=== PATIENT | female | born 1970 | race African-American/Black ===

== ENCOUNTER 2016-12-06 05:15 | Day surgery (SDC) | payer OTHER ==
[2016-12-03 11:25] VITALS: BMI 27.2
[2016-12-06] MEDS ORDERED: LIDOCAINE HCL/PF 2% SDV 5ML VIAL ONE (11:27)
[2016-12-06] MEDS ORDERED: PROPOFOL 20 ML ONE (11:27)
[2016-12-06] MEDS ORDERED: MIDAZOLAM HCL 2 MG/2 ML SINGLE DOSE VIAL ONE (12:38)
[2016-12-06] MEDS ORDERED: DEXAMETHASONE SOD PHOSPHATE 4 MG/1 ML VIAL ONE (12:58)
[2016-12-06] MEDS ORDERED: KETOROLAC TROMETHAMINE 30 MG/1 ML VIAL ONE (12:58)
[2016-12-06 15:04] VITALS: TEMP 98.4
--- NOTE | 2016-12-06 15:08 | HP ---
History & Physical Update - History History: No Change - Physical Physical: No Change - Assessment Assessment: No Change - Plan Plan: No Change
[2016-12-06] MEDS ORDERED: IBUPROFEN 400 MG TABLET (FP) PO PRN (15:21)
[2016-12-06] MEDS ORDERED: ACETAMINOPHEN 325 MG TABLET (FP) PO PRN (15:21)
--- NOTE | 2016-12-06 15:49 | OP ---
Operative Note - Note: Operative Date: 12/06/16 Pre-Operative Diagnosis: Menorrhagia. Submucosal myoma Operation: Hysteroscopic myomectomy. Suction DC Findings: Anterior submucosal myoma Post-Operative Diagnosis: Same as Pre-op Surgeon: Brynn Magallanes Anesthesia: General Estimated Blood Loss (mls): 30 Operative Report Dictated: Yes
[2016-12-06 16:16] VITALS: BP 130/76; PULSE 73
--- NOTE | 2016-12-07 13:24 | PATH ---
Surgical Pathology Report Patient Name: ALEX SAWANT [facility]. Rec. #: [id number] /Age/Gender: 1970 (Age: 45) / F Account: [id number] Location: [facility] SURGICAL Taken: 12/06/2016 Received: 12/06/2016 Reported: 12/07/2016 Physicians: Brynn Magallanes M.D. Specimen(s) Received FIBROIDS, POLYPS Clinical History Menorrhagia Final Diagnosis FIBROIDS AND POLYPS, HYSTEROSCOPIC MYOMECTOMY, SUCTION DILATION AND CURETTAGE: FRAGMENTS OF SECRETORY ENDOMETRIUM WITH FOCAL AREAS SUGGESTIVE OF ENDOMETRIAL POLYP. FRAGMENTS OF BENIGN SMOOTH MUSCLE WITH OVERLYING BENIGN ENDOMETRIUM SUGGESTIVE OF SUBMUCOSAL LEIOMYOMA. Electronically Signed Kameron Sullivan M.D. Gross Description Received in formalin labeled "fibroids and polyp" is a 33 g, 8.3 x 7.0 x 1.0 cm aggregate of castorena-red soft tissue fragments admixed with blood clot. The formalin is filtered and the specimen is entirely submitted in 12 cassettes. /12/06/2016 [facility]12/06/2016
== END 2016-12-06 16:15 | disposition home or self-care (01) ==
LOC: JASU-SURG 05:15
PROVIDERS: ATTEND Obstetrics & Gynecology
PROC: 0UDB8ZX Extraction of Endometrium, Via Natural or Artificial Opening Endoscopic, Diagnostic (ICD-10-PCS; principal; 2016-12-06 11:30)
PROC: 0UB98ZZ Excision of Uterus, Via Natural or Artificial Opening Endoscopic (ICD-10-PCS; 2016-12-06 11:30)
DX: N92.0 Excessive and frequent menstruation with regular cycle (principal); D25.0 Submucous leiomyoma of uterus
CPT/HCPCS: 88305-TC; 94760

== ENCOUNTER 2017-01-17 05:11 | Inpatient (IN) | payer OTHER ==
[2017-01-12 11:02] VITALS: BMI 27.9
[2017-01-17] MEDS ORDERED: ROPIVACAINE HCL 0.5% 30ML VIAL ONE (09:29)
[2017-01-17] MEDS ORDERED: MIDAZOLAM HCL 2 MG/2 ML SINGLE DOSE VIAL ONE ×3 (09:31→12:01)
[2017-01-17] MEDS ORDERED: CEFAZOLIN 2 GM/D5W 50 ML IVPB ONE (10:16)
--- NOTE | 2017-01-17 10:16 | HP ---
History & Physical Update - History History: No Change - Physical Physical: No Change - Assessment Assessment: No Change - Plan Plan: No Change
[2017-01-17] MEDS ORDERED: ceFAZolin SODIUM 1 GM VIAL ONE (10:18)
[2017-01-17] MEDS ORDERED: PROPOFOL 20 ML ONE ×3 (10:18→12:01)
[2017-01-17] MEDS ORDERED: ROCURONIUM BROMIDE 50 MG/5 ML VIAL ONE ×2 (10:20→12:01)
[2017-01-17] MEDS ORDERED: ceFAZolin SODIUM 1 GM VIAL IVPB ONE (10:24)
--- NOTE | 2017-01-17 10:29 | OP ---
Operative Note - Note: Operative Date: 01/17/17 Surgeon: Brynn Magallanes Sample Case Porter: Galina Breen Anesthesia: General Operative Report Dictated: Yes
[2017-01-17] MEDS ORDERED: DEXTROSE 5%-LACTATED RINGERS 1,000 ML IV SCH (10:30)
[2017-01-17] MEDS ORDERED: GLYCOPYRROLATE 0.2 MG/1 ML VIAL ONE (11:04)
[2017-01-17] MEDS ORDERED: NEOSTIGMINE METHYLSULFATE 0.5 MG/ML - 10 ML MDV ONE (11:04)
[2017-01-17] MEDS ORDERED: DEXAMETHASONE SOD PHOSPHATE 4 MG/1 ML VIAL ONE ×2 (11:04→12:41)
[2017-01-17] MEDS ORDERED: HYDROmorphone HCL CARPU-JECT 2 MG/1 ML DISP.SYRIN IVPUSH PRN (12:00)
[2017-01-17] MEDS ORDERED: LACTATED RINGERS SOLUTION 1,000 ML IV SCH (12:00)
[2017-01-17] MEDS ORDERED: ONDANSETRON 4 MG/2 ML VIAL IVPUSH PRN (12:00)
[2017-01-17] MEDS ORDERED: LIDOCAINE HCL/PF 2% SDV 5ML VIAL ONE (12:01)
[2017-01-17] MEDS ORDERED: HYDROmorphone HCL CARPU-JECT 2 MG/1 ML DISP.SYRIN ONE ×2 (12:12→12:13)
[2017-01-17] MEDS ORDERED: HYDROmorphone *PCA* 10MG/50ML DISP.SYRIN PCA ONE (12:13)
[2017-01-17] MEDS ORDERED: ePHEDrine SULFATE 50 MG/1 ML AMPULE ONE (14:51)
[2017-01-17] MEDS: IBUPROFEN 800 MG/8 ML IJ IVPB PRN (16:38)
[2017-01-17] MEDS: CEFAZOLIN (PRE-DOCKED) 50 ML IVPB SCH (17:57)
[2017-01-17] MEDS ORDERED: CEFAZOLIN 1 GM/D5W 50 ML IVPB SCH (18:00)
[2017-01-18] MEDS: CEFAZOLIN (PRE-DOCKED) 50 ML IVPB SCH (01:27)
[2017-01-18] MEDS: IBUPROFEN 800 MG/8 ML IJ IVPB PRN (02:17)
[2017-01-18] MEDS: ENOXAPARIN NA (PORCINE) 40 MG/0.4 ML DISP.SYRIN SQ SCH (09:12)
[2017-01-18] MEDS: oxyCODONE HCL 5 MG TABLET PO PRN ×3 (11:50→21:15)
--- NOTE | 2017-01-18 14:04 | OP ---
DATE OF OPERATION: 01/17/2017 PREOPERATIVE DIAGNOSIS: Leiomyomatous uterus and adenomyosis, as well as pelvic pain, menorrhagia. OPERATION: Total abdominal hysterectomy and bilateral salpingectomy. POSTOPERATIVE DIAGNOSIS: Leiomyomatous uterus and adenomyosis, as well as pelvic pain, menorrhagia. SURGEON: Chon Mccormick MD DESIGN CENTER CONSULTANT: Galina Breen MD ANESTHESIA: General. ANESTHESIOLOGIST: Selena Pierce MD PROCEDURE: Patient was taken to the operating room, placed in supine position, prepped and draped in the usual sterile fashion. Chavez catheter was inserted into the bladder. A time-out was performed in accordance with hospital regulations after patient was prepped and draped in the usual sterile fashion. Scalpel was then used to go through the patients previous scar. Cautery was then used to go through the layers of abdominal wall through to the fascia. Fascia was cut in the midline, and cautery was then used to open the fascia in a smiling fashion. Ainsley was then used to bluntly and sharply dissect the rectus muscle. The fascial muscle was split in the midline. Peritoneal cavity was then entered and carried up and downwards. Uterus was then exteriorized, bowel was packed out of the operative field. Round ligaments were identified, and clamped and cut using LigaSure. Vesicouterine fistula was entered and clamped and cut using LigaSure. Uterine arteries were then skeletonized, and LigaSure was then used to coagulate and cut both uterine arteries bilaterally. Cardinal ligaments were identified after the vesicouterine fistula was then entered, and bladder was bluntly dissected out of the operative field. Cardinal ligament was identified, clamped and cut down to the level of the cervix. Vagina was then entered, and Luna scissors were then used to cut the vagina away from the cervix. Uterus and cervix were then submitted. Bilateral tubes were coagulated and cut using LigaSure. Cuff was then closed using 0 Vicryl suture in a continuous and locking fashion. Hemostasis was achieved. Interceed was placed on the cuff and sewn and tied in. Two pieces of Interceed were placed on the adnexal region. Hemostasis was achieved after irrigation done. Sweep was done, pack count was done, and abdominal packing was removed. Peritoneum was then closed using 0 Vicryl suture in continuous fashion. Vicryl was then used to close the fascia in a continuous fashion. Wound was washed and dressed. Then, 3-0 Vicryl was used to close the skin. Wound was washed and dressed. Patient tolerated the procedure well. Estimated blood loss was 200 mL. CHON MCCORMICK M.D. [id number]
--- NOTE | 2017-01-18 14:45 | PN ---
Progress Note, Physician Chief Complaint: s/p abdominal hysterectomy post op day one History of Present Illness: bilateral TAPS block for post op pain control - Current Medication List Current Medications: Active Medications Enoxaparin Sodium (Lovenox -) 40 mg SQ DAILY BENITO Last Admin: 01/18/17 09:12 Dose: 40 mg Hydromorphone HCl (Dilaudid Injection -) 2 mg IVPUSH [id number] PRN PRN Reason: PAIN Stop: 01/20/17 12:01 Last Admin: 01/17/17 12:12 Dose: 2 mg Dextrose/Lactated Ringer's (D5-Lr -) 1,000 mls @ 125 mls/hr IV ASDIR BENITO Lactated Ringer's (Lactated Ringers Solution) 1,000 mls @ 125 mls/hr IV ASDIR BENITO Last Admin: 01/18/17 00:30 Dose: 125 mls/hr Ibuprofen (Caldolor Injection -) 800 mg IVPB Q8H PRN PRN Reason: FEVER Last Admin: 01/18/17 02:17 Dose: 800 mg Oxycodone HCl (Roxicodone -) 5 mg PO Q4H PRN PRN Reason: PAIN Last Admin: 01/18/17 11:50 Dose: 5 mg - Objective Vital Signs: Vital Signs Temperature 98.2 F 01/18/17 10:00 Pulse Rate 81 01/18/17 10:00 Respiratory Rate 20 01/18/17 10:00 Blood Pressure 125/72 01/18/17 10:00 O2 Sat by Pulse Oximetry (%) 100 01/17/17 22:00 Constitutional: Yes: Well Nourished Cardiovascular: Yes: WNL Respiratory: Yes: WNL Gastrointestinal: Yes: WNL Assessment/Plan Pain controlled, complained of gas pain, no nausea or vomiting, no adverse effects of anesthesia, dept of anesthesia will sign off care at this time
[2017-01-18] MEDS ORDERED: OXYCODONE/APAP 5/325MG COMBO TABLET PO PRN (18:38)
[2017-01-18] MEDS ORDERED: oxyCODONE HCL 5 MG TABLET PO PRN ×2 (18:44→18:47)
[2017-01-18] MEDS ORDERED: ACETAMINOPHEN 325 MG TABLET (FP) PO PRN (18:44)
[2017-01-18] MEDS: SIMETHICONE 80 MG TAB.CHEW (FP) PO PRN (18:56)
[2017-01-18] MEDS: ONDANSETRON 4 MG/2 ML VIAL IVPB PRN (19:01)
[2017-01-18] MEDS: ACETAMINOPHEN 325 MG TABLET (FP) PO PRN (21:14)
--- NOTE | 2017-01-19 06:10 | PN ---
Progress Note (SOAP) - Subjective Chief Complaint: Pt doing well - Current Medications Current Medications: Active Medications Acetaminophen (Tylenol -) 650 mg PO Q4H PRN PRN Reason: PAIN LEVEL 6-10 Stop: 01/21/17 18:46 Last Admin: 01/18/17 21:14 Dose: 650 mg Enoxaparin Sodium (Lovenox -) 40 mg SQ DAILY BENITO Last Admin: 01/18/17 09:12 Dose: 40 mg Hydromorphone HCl (Dilaudid Injection -) 2 mg IVPUSH [id number] PRN PRN Reason: PAIN Stop: 01/20/17 12:01 Last Admin: 01/17/17 12:12 Dose: 2 mg Dextrose/Lactated Ringer's (D5-Lr -) 1,000 mls @ 125 mls/hr IV ASDIR BENITO Lactated Ringer's (Lactated Ringers Solution) 1,000 mls @ 125 mls/hr IV ASDIR BENITO Last Admin: 01/18/17 00:30 Dose: 125 mls/hr Ibuprofen (Caldolor Injection -) 800 mg IVPB Q8H PRN PRN Reason: FEVER Last Admin: 01/18/17 02:17 Dose: 800 mg Ondansetron HCl (Zofran Injection) 4 mg IVPB Q6H PRN PRN Reason: NAUSEA Last Admin: 01/18/17 19:01 Dose: 4 mg Oxycodone HCl (Roxicodone -) 5 mg PO Q4H PRN PRN Reason: PAIN Last Admin: 01/18/17 21:15 Dose: 5 mg Oxycodone HCl (Roxicodone -) 10 mg PO Q4H PRN PRN Reason: PAIN LEVEL 6-10 Simethicone (Mylicon -) 80 mg PO Q4H PRN PRN Reason: GAS Last Admin: 01/18/17 18:56 Dose: 80 mg - Objective Vital Signs: Vital Signs Temperature 98.5 F 01/18/17 22:00 Pulse Rate 78 01/18/17 22:00 Respiratory Rate 20 01/18/17 22:00 Blood Pressure 120/75 01/18/17 22:00 O2 Sat by Pulse Oximetry (%) 100 01/18/17 22:00 Constitutional: Yes: Well Nourished, No Distress Gastrointestinal: Yes: WNL, Normal Bowel Sounds, Soft Musculoskeletal: Yes: WNL Edema: No Wound/Incision: Yes: Clean/Dry, Well Approximated, Steri Strips, Open to air Assessment/Plan POD2 stable nausea resolved passing flatus plan DC home Rto 1 week
[2017-01-19] MEDS: ENOXAPARIN NA (PORCINE) 40 MG/0.4 ML DISP.SYRIN SQ SCH (09:03)
[2017-01-19] MEDS: SIMETHICONE 80 MG TAB.CHEW (FP) PO PRN ×2 (09:03→21:24)
[2017-01-19] MEDS: ACETAMINOPHEN 325 MG TABLET (FP) PO PRN ×2 (09:03→21:27)
[2017-01-19] MEDS: ONDANSETRON 4 MG/2 ML VIAL IVPB PRN (15:19)
[2017-01-19] MEDS ORDERED: BISACODYL 10 MG SUPP.RECT RC ONE (15:26)
[2017-01-19] MEDS ORDERED: IBUPROFEN 600 MG TABLET (FP) PO PRN (15:27)
--- NOTE | 2017-01-19 17:50 | PATH ---
Surgical Pathology Report Patient Name: ALEX SAWANT [facility]. Rec. 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 Specimen(s) Received A: UTERUS AND CERVIX B: RIGHT FALLOPIAN TUBE C: LEFT FALLOPIAN TUBE Clinical History Leiomyoma of uterus Final Diagnosis A. UTERUS AND CERVIX, TOTAL ABDOMINAL HYSTERECTOMY: CERVIX: CHRONIC CERVICITIS, SQUAMOUS METAPLASIA. ENDOMETRIUM: SECRETORY. MYOMETRIUM: FOCAL ADENOMYOSIS, LEIOMYOMATA (LARGEST 3.2 CM). UTERINE SEROSA: WITHOUT SIGNIFICANT PATHOLOGIC CHANGES. B. FALLOPIAN TUBE, RIGHT, SALPINGECTOMY: BENIGN FIMBRIATED PORTION OF FALLOPIAN TUBE WITH FOCAL FIBROVASCULAR ADHESIONS. C. FALLOPIAN TUBE, LEFT SALPINGECTOMY: BENIGN FIMBRIATED PORTION OF FALLOPIAN TUBE WITH FOCAL FIBROVASCULAR ADHESIONS. Electronically Signed Kameron Sullivan M.D. Gross Description A. Received in formalin labeled "uterus and cervix," is a 357 g uterus with an attached cervix and no attached adnexa. The specimen measures 12 cm from superior to inferior, 9 cm from anterior to posterior and 8.2 cm from left to right. The serosa is castorena-christine with focal subserosal nodules. The attached cervix measures 3 cm in length and averages 3 cm in diameter. The ectocervix is pink-castorena, smooth and glistening. The endocervix is unremarkable. The endometrial cavity measures 6 cm in length and 2.5 cm from cornu to cornu. The endometrium is castorena-red and averages 0.2 cm in thickness. The myometrium displays abundant intramural nodules, measuring up to 3.2 cm in greatest dimension. The cut surface of the subserosal and intramural nodules is castorena, firm to rubbery and displays whorled architecture. No areas of hemorrhage or necrosis are identified. The remaining myometrium is castorena-pink and averages 4.4 cm in thickness. District Wire Chief sections are submitted in 12 cassettes as follows: 1-anterior cervix; 2-posterior cervix; 3-8-xvcpuneu endomyometrium; 5-4-jgwghbdnk endomyometrium; 4-4-zqjoafwjot nodules; 8-17-qctdldzpll nodules. B. Received in formalin labeled "right fallopian tube" is a 1 cm in length fimbriated portion of fallopian tube. The outer surface is licona-purple. Sectioning reveals a pinpoint lumen. The specimen is entirely submitted in 2 cassettes as follows: 1-fimbria; 2-cross sections of fallopian tube. C. Received in formalin labeled "left fallopian tube" is a 0.8 cm in length fimbriated portion of fallopian tube. The outer surface is licona-purple. Sectioning reveals a pinpoint lumen. The specimen is entirely submitted in 2 cassettes as follows: 1-fimbria; 2-cross sections of fallopian tube. 01/18/2017 [facility]01/18/2017
[2017-01-20 07:57] VITALS: BP 123/71; PULSE 82; TEMP 98.4
[2017-01-20] MEDS: ENOXAPARIN NA (PORCINE) 40 MG/0.4 ML DISP.SYRIN SQ SCH (09:32)
--- NOTE | 2017-01-20 09:33 | DS ---
Physical Examination Vital Signs: Vital Signs Temperature 98.4 F 01/20/17 07:53 Pulse Rate 82 01/20/17 07:53 Respiratory Rate 18 01/20/17 07:53 Blood Pressure 123/71 01/20/17 07:53 O2 Sat by Pulse Oximetry (%) 100 01/18/17 22:00 Constitutional: Yes: Well Nourished Eyes: Yes: Conjunctiva Clear HENT: Yes: Atraumatic Neck: Yes: Supple, Trachea Midline Cardiovascular: Yes: Regular Rate and Rhythm Respiratory: Yes: Regular, CTA Bilaterally Gastrointestinal: Yes: Normal Bowel Sounds Breast(s): Yes: WNL Wound/Incision: Yes: Well Approximated, Steri Strips (in place) Neurological: Yes: Alert, Oriented ...Motor Strength: WNL Psychiatric: Yes: Alert, Oriented Discharge Summary Reason For Visit: LEIOMYOMA OF UTERUS Procedures: Principal: Abdominal hysterectomy Hospital Course: Patient received treatment for Nause; no blood transfusion required. Condition: Good - Instructions Diet, Activity, Other Instructions: Dr. Brynn Magallanes Cask Maker discharge instructions Physical activity Resume your normal everyday activity as tolerated no heavy lifting or exercise until seen by your surgeon. You may walk unlimited siva of and climb stairs. You may resume driving the car when you feel safe and comfortable behind the wheel. No sexual activity as instructed by Dr. Magallanes. Wound care If you have a bandage, leave it on, and keep dry for 48-72 hours. After that time discard the outer bandage. If they are tapes on the skin under the out of bandage leave them in place. They will peel off in the next 7 to 10 days. Do Not Peel them off. You may shower the day after surgery. If there are tapes present on the skin, you may shower over them. Diet There are no dietary restrictions. Eat healthy, high-fiber foods. Drink 6 to 8 glasses of liquid each day. This will assist in keeping your bowels are regular. Pain management You may take Tylenol or acetaminophen or Ibuprofen (for example, Motrin, Advil etc.) from my pain prescription medication is ordered should be taken as prescribed for moderate to severe pain. Call Dr. Magallanes for any of the following: Severe pain not relieved by medication Fever of 101 or higher Excessive bleeding or drainage on dressing Inability to urinate Call the office at [phone] for an appointment in seven days. Referrals: Brynn Magallanes MD [Staff Physician] - Disposition: HOME - Home Medications Comprehensive Discharge Medication List: Ambulatory Orders Aspirin/Acetaminophen/Caffeine [Excedrin Migraine Caplet] 1 each PO PRN PRN 08/20 Docusate Sodium [Colace -] 100 mg PO DAILY 01/17/17 Ferrous Gluconate [Iron] 256 mg PO DAILY 01/17/17 Oxycodone HCl/Acetaminophen [Percocet 5-325 mg Tablet -] 1 tab PO Q4H #20 tablet MDD 6 01/19/17
== END 2017-01-20 10:40 | disposition home or self-care (01) | DRG 743 ==
LOC: JSAMEDAYSX 05:11 → J3W 13:35
PROVIDERS: ADMIT Obstetrics & Gynecology; ATTEND Obstetrics & Gynecology
PROC: 0UTC0ZZ Resection of Cervix, Open Approach (ICD-10-PCS; 2017-01-17)
PROC: 0UT70ZZ Resection of Bilateral Fallopian Tubes, Open Approach (ICD-10-PCS; 2017-01-17)
PROC: 0UT90ZZ Resection of Uterus, Open Approach (ICD-10-PCS; principal; 2017-01-17 09:30)
DX: D25.9 Leiomyoma of uterus, unspecified (principal); N80.0 Endometriosis of uterus; N92.0 Excessive and frequent menstruation with regular cycle; D64.9 Anemia, unspecified
CPT/HCPCS: 88302-TC; 88307-TC; 94760